=== PATIENT | female | born 1935 | race Caucasian/White ===

== ENCOUNTER 2016-04-18 18:00 | Inpatient (IN) ==
[2016-04-18] MEDS ORDERED: *HR* Dextrose 50 % in Water (Syg) 50 ML SYRINGE IVP PRN (21:54)
[2016-04-18] MEDS ORDERED: D5% in Water 1,000 ML IV PRN (21:54)
[2016-04-18] MEDS ORDERED: Dextrose Gel 15 GM PO PRN ×2 (21:54)
[2016-04-18] MEDS: Insulin LISPRO 300 UNITS/3 ML VIAL SQ SCH (22:08)
[2016-04-19 05:36] LABS: Basophils # 0.1 K/mcL (0.0-0.2); Basophils % 0.7 %; Eosinophils # 0.4 K/mcL (0.0-0.6); Eosinophils % 4.1 %; Hematocrit 32.7 % (35.3-44.9); Hemoglobin 10.5 g/dL (11.5-15.4); INR 3.3; Immature Granulocytes % 0.7 % (0-4); Lymphocytes # 1.9 K/mcL (0.6-4.6); Mean Corpuscular HGB Conc 32.1 g/dL (31.6-35.5); Mean Corpuscular Hemoglobin 28.8 pg (28.0-33.3); Mean Corpuscular Volume 89.6 fL (83.0-100.0); Mean Platelet Volume 10.9 fL (9.4-12.4); Monocytes # 0.8 K/mcL (0.0-1.3); Neutrophils # 7.2 K/mcL (1.6-8.9); Platelet Count 299 K/mcL (140-400); Red Blood Count 3.65 M/mcL (3.82-4.97); Red Cell Distribution Width 15.2 % (11.5-14.5); Segmented Neutrophils % 68.5 %
[2016-04-19 05:39] LABS: Activated Partial Thrombo Time 33.9 Seconds (26.0-36.0)
[2016-04-19 05:43] LABS: Calcium 9.1 mg/dL (8.6-10.8); Potassium 4.3 mEq/L (3.5-4.5)
[2016-04-19] MEDS: *HR* Metformin 500 MG TABLET PO SCH (08:49)
[2016-04-19] MEDS: *HR* Digoxin 0.125 MG TABLET PO SCH (08:50)
[2016-04-19] MEDS: *HR* Glimepiride 4 MG TABLET PO SCH (08:50)
[2016-04-19] MEDS: Insulin LISPRO 300 UNITS/3 ML VIAL SQ SCH ×4 (08:50→22:00)
--- NOTE | 2016-04-19 12:36 | Internal Med History&Physical ---
Date of Encounter: 04/23/16 Time of Encounter: 12:33 Assessment and Plan (1) Heart attack Current visit: Yes Status: Acute Patient appears to be stable at this point Qualifiers: Myocardial infarction ST status: non-ST elevation myocardial infarction Qualified Code(s): I21.4 - Non-ST elevation (NSTEMI) myocardial infarction (2) CVA (cerebral vascular accident) Current visit: Yes Status: Acute Working with PT OT TR. 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 P Admitted From: Hospital to Hospital Transfer Plans for Post Hospital Care: Home History of present illness: Ms. Moser is a 81 year old female Past Med Surg Social Fam HX - Past Medical History Medical history: arthritis, atrial fibrillation, CHF, CVA, DVT, diabetes, hyperlipidemia, hypertension, myocardial infarction Psychiatric history: no psych history - Past Surgical History Surgical History: cataract, other - Social History Smoking Status: Never smoker Smokeless Tobacco Status: No Alcohol use: none Drug use: none Internal Medicine - H&P: Meds Atorvastatin [Lipitor] 80 mg PO HS 04/18/16 [History] Digoxin [Lanoxin] 0.125 mg PO DAILY 04/18/16 [History] Glimepiride [Amaryl] 4 mg PO 0800 04/18/16 [History] Lisinopril [Zestril] 5 mg PO 1200 04/18/16 [History] Metformin [Glucophage] 500 mg PO 0800 04/18/16 [History] Metoprolol Tartrate 75 mg PO BID 04/18/16 [History] Potassium Chloride [K-Tab ER] 20 meq PO 04/18/16 [History] Warfarin [Coumadin] 5 mg PO 1800 04/18/16 [History] Allergies No Known Allergies Allergy (Verified 04/18/16 18:32) All Systems PM: A 10-system review of systems was performed and is negative for pertinent findings except as documented above in the HPI. - Constitutional Vitals: Temp Pulse Resp BP Pulse Ox 97.4 F L 59 16 144/72 98 04/19/16 12:17 04/19/16 12:17 04/19/16 12:17 04/19/16 12:17 04/19/16 12:17 - Head Head exam: Present: atraumatic, normal inspection, normocephalic - Neck Neck exam general surgery: Present: supple, trachea midline. Absent: lymphadenopathy - Respiratory Respiratory exam: Present: CTAB. Absent: accessory muscle use, rales, rhonchi, wheezes - Cardiovascular Cardiovascular exam: Present: RRR, +S1, +S2. Absent: diastolic murmur, gallop, rubs, systolic murmur - GI/Abdominal GI/Abdominal exam: Present: normal bowel sounds, soft, no peritoneal signs. Absent: distended, tenderness Internal Med - H&P Results - Labs CBC & Chem 7: 04/19/16 05:20 04/19/16 05:20 Labs: Short CBC 04/19/16 Range/Units 05:20 WBC 10.5 (4.3-11.1) K/mcL Hgb 10.5 L (11.5-15.4) g/dL Hct 32.7 L (35.3-44.9) % Plt Count 299 (140-400) K/mcL Neutrophils # 7.2 (1.6-8.9) K/mcL BMP 04/19/16 05:20 Sodium 141 Potassium 4.3 Chloride 111 H Carbon Dioxide 21 BUN 22 H Creatinine 1.10 Glucose 247 H Calcium 9.1 Lab appears stable
[2016-04-19] MEDS ORDERED: *HR* Warfarin 5 MG TABLET PO SCH (18:00)
[2016-04-20 06:18] LABS: INR 2.2; Prothrombin Time 23.8 Seconds (9.4-12.1)
[2016-04-20] MEDS: *HR* Glimepiride 4 MG TABLET PO SCH (08:27)
[2016-04-20] MEDS: *HR* Metformin 500 MG TABLET PO SCH (08:27)
[2016-04-20] MEDS: *HR* Digoxin 0.125 MG TABLET PO SCH (08:29)
[2016-04-20] MEDS: Insulin LISPRO 300 UNITS/3 ML VIAL SQ SCH ×4 (08:29→21:01)
--- NOTE | 2016-04-20 11:36 | Internal Med Progress Note ---
Date of Encounter: 04/20/16 Time of Encounter: 11:34 - Assessment and plan (1) Diabetes Current Visit: Yes Status: Chronic Assessment and plan: Accu-Chek is 167. On metformin 500 daily. Continue to monitor Accu-Chek. 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 PT and OT will continue on improvement activity of daily living. Safety. Balance. Qualifiers: CVA mechanism: occlusion Precerebral and cerebral artery: unspecified precerebral artery Qualified Code(s): I63.20 - Cerebral infarction due to unspecified occlusion or stenosis of unspecified precerebral arteries - Time Spent With Patient less than 15 minutes - Subjective Interval history: Still complains of blurry vision. No shortness of breath. No headache. No chest pain. No nausea vomiting abdominal pain. - Constitutional Vitals: Temp Pulse Resp BP Pulse Ox 98.8 F 61 18 136/77 95 04/20/16 07:48 04/20/16 07:48 04/20/16 07:48 04/20/16 07:48 04/20/16 07:48 General appearance: Present: A&O X 3, pleasant, no acute distress - Respiratory Respiratory exam: Present: CTAB. Absent: accessory muscle use, rales, rhonchi, wheezes - Cardiovascular Cardiovascular exam: Present: RRR, +S1, +S2. Absent: diastolic murmur, gallop, rubs, systolic murmur - GI/Abdominal GI/Abdominal exam: Present: normal bowel sounds, soft, no peritoneal signs. Absent: distended, tenderness - Extremities Exam Extremities exam: Present: warm, radial pulses palpable and symetrical. Absent : calf tenderness, cyanotic, pedal edema Internal Medicine: Result - Labs CBC & Chem 7: 04/19/16 05:20 04/19/16 05:20 - ABG Interpretation ABG results: PT/INR, D-dimer PT 23.8 Seconds (9.4-12.1) H 04/20/16 05:50 Consult Discharge Plan - Plan Referrals: Luly Cummings MD [Primary Care Provider] -
[2016-04-20] MEDS: *HR* Warfarin 5 MG TABLET PO SCH (17:31)
--- NOTE | 2016-04-21 00:08 | Internal Med Progress Note ---
Date of Encounter: 04/21/16 Time of Encounter: 07:54 - Assessment and plan (1) CVA (cerebral vascular accident) Current Visit: Yes Status: Acute Assessment and plan: Residual effect is still the visual blurred vision. PT and OT will continue on improvement activity of daily living. Safety. Balance. Qualifiers: CVA mechanism: occlusion Precerebral and cerebral artery: unspecified precerebral artery Qualified Code(s): I63.20 - Cerebral infarction due to unspecified occlusion or stenosis of unspecified precerebral arteries (2) Diabetes Current Visit: Yes Status: Chronic Assessment and plan: Accu-Chek is 167. On metformin 500 daily. Continue to monitor Accu-Chek. 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 No shortness of breath. No headache. No chest pain. No nausea vomiting abdominal pain. - Constitutional Vitals: Temp Pulse Resp BP Pulse Ox 98.0 F 82 14 154/75 95 04/20/16 19:00 04/20/16 19:00 04/20/16 19:00 04/20/16 19:00 04/20/16 19:00 General appearance: Present: A&O X 3, pleasant, no acute distress - Eye Additional comments: Blurred vision noted - Respiratory Respiratory exam: Present: CTAB. Absent: accessory muscle use, rales, rhonchi, wheezes - Cardiovascular Cardiovascular exam: Present: RRR, +S1, +S2. Absent: diastolic murmur, gallop, rubs, systolic murmur - GI/Abdominal GI/Abdominal exam: Present: normal bowel sounds, soft, no peritoneal signs. Absent: distended, tenderness - Extremities Exam Extremities exam: Present: warm, radial pulses palpable and symetrical. Absent : calf tenderness, cyanotic, pedal edema - Neurological Exam Neurological exam: Present: alert, oriented X3. Absent: pronater drift, facial droop, speech deficit Internal Medicine: Result - Labs CBC & Chem 7: 04/19/16 05:20 04/19/16 05:20 - ABG Interpretation ABG results: PT/INR, D-dimer PT 23.8 Seconds (9.4-12.1) H 04/20/16 05:50 Consult Discharge Plan - Plan Referrals: Luly Cummings MD [Primary Care Provider] -
[2016-04-21 05:32] LABS: INR 1.8; Prothrombin Time 19.7 Seconds (9.4-12.1)
[2016-04-21] MEDS: *HR* Glimepiride 4 MG TABLET PO SCH (08:37)
[2016-04-21] MEDS: *HR* Metformin 500 MG TABLET PO SCH (08:37)
[2016-04-21] MEDS: *HR* Digoxin 0.125 MG TABLET PO SCH (08:37)
[2016-04-21] MEDS: Insulin LISPRO 300 UNITS/3 ML VIAL SQ SCH ×4 (08:38→21:05)
[2016-04-21] MEDS: Acetaminophen 325 MG TABLET PO PRN ×2 (08:58→18:15)
[2016-04-21] MEDS: *HR* Warfarin 5 MG TABLET PO SCH (17:44)
[2016-04-22 05:46] LABS: Prothrombin Time 22.2 Seconds (9.4-12.1)
[2016-04-22] MEDS: *HR* Glimepiride 4 MG TABLET PO SCH (09:14)
[2016-04-22] MEDS: *HR* Metformin 500 MG TABLET PO SCH (09:14)
[2016-04-22] MEDS: *HR* Digoxin 0.125 MG TABLET PO SCH (09:14)
[2016-04-22] MEDS: Acetaminophen 325 MG TABLET PO PRN ×2 (09:20→18:17)
[2016-04-22] MEDS: Insulin LISPRO 300 UNITS/3 ML VIAL SQ SCH ×4 (09:43→20:46)
--- NOTE | 2016-04-22 13:07 | Internal Med Progress Note ---
Date of Encounter: 04/22/16 Time of Encounter: 13:05 - Assessment and plan (1) Heart attack Current Visit: Yes Status: Acute Assessment and plan: Mobile with a CVA. Pierced to be stable to Qualifiers: Myocardial infarction ST status: non-ST elevation myocardial infarction Qualified Code(s): I21.4 - Non-ST elevation (NSTEMI) myocardial infarction (2) CVA (cerebral vascular accident) Current Visit: Yes Status: Acute Assessment and plan: Patient's further PT OT and TR doing well. Qualifiers: CVA mechanism: occlusion Precerebral and cerebral artery: unspecified precerebral artery Qualified Code(s): I63.20 - Cerebral infarction due to unspecified occlusion or stenosis of unspecified precerebral arteries (3) HTN (hypertension) Current Visit: Yes Status: Acute Qualifiers: Qualified Code(s): I10 - Essential (primary) hypertension - Time Spent With Patient less than 15 minutes - Subjective Interval history: Patient has no complaints and is progressing in her program - Constitutional Vitals: Temp Pulse Resp BP Pulse Ox 97.2 F L 62 18 158/78 92 L 04/22/16 07:00 04/22/16 07:00 04/22/16 07:00 04/22/16 07:00 04/22/16 07:00 General appearance: Present: A&O X 3, pleasant, no acute distress - Head Head exam: Present: atraumatic, normal inspection, normocephalic - Neck Neck exam general surgery: Present: supple, trachea midline. Absent: lymphadenopathy - Respiratory Respiratory exam: Present: CTAB. Absent: accessory muscle use, rales, rhonchi, wheezes - Cardiovascular Cardiovascular exam: Present: RRR, +S1, +S2. Absent: diastolic murmur, gallop, rubs, systolic murmur - GI/Abdominal GI/Abdominal exam: Present: normal bowel sounds, soft, no peritoneal signs. Absent: distended, tenderness Internal Medicine: Result - Labs CBC & Chem 7: 04/19/16 05:20 04/19/16 05:20 Labs: Labs really okay - ABG Interpretation ABG results: PT/INR, D-dimer PT 22.2 Seconds (9.4-12.1) H 04/22/16 05:15 - VTE Documentation of Mechanical Device: Graduated compression elastic hosiery Consult Discharge Plan - Plan Referrals: Luly Cummings MD [Primary Care Provider] -
--- NOTE | 2016-04-22 14:19 | Psychological Evaluation ---
Date of Encounter: 04/22/16 Time of Encounter: 10:00 History of Present Illness History of present illness: Ms. Moser is an 81 year old female admitted to [facility] following a recent heart attack which led to a CVA. She was seen on this date to assess her current cognitive and emotional functioning. Past Medical History Medical history: Significant for HTN, arthritis, atrial fibrillation, CHF, DVT, diabetes, hyperlipidemia and myocardial infarction. - Psychiatric History Additional Psychiatric History: There is no history of psychiatric hospitalization or mental health counseling. She also reported no family history of psychiatric or mental health issues. Home Medications and Allergies Atorvastatin [Lipitor] 80 mg PO HS 04/18/16 [History] Digoxin [Lanoxin] 0.125 mg PO DAILY 04/18/16 [History] Glimepiride [Amaryl] 4 mg PO 0800 04/18/16 [History] Lisinopril [Zestril] 5 mg PO 1200 04/18/16 [History] Metformin [Glucophage] 500 mg PO 0800 04/18/16 [History] Metoprolol Tartrate 75 mg PO BID 04/18/16 [History] Potassium Chloride [K-Tab ER] 20 meq PO 04/18/16 [History] Warfarin [Coumadin] 5 mg PO 1800 04/18/16 [History] Allergies No Known Allergies Allergy (Verified 04/18/16 18:32) Social History - Social History Social History: Ms. Moser and her have been for 60 years. They have 3 children (one son age 59 and two daughters ages 57 and 55). 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 She reported that she and her enjoyed traveling initially after their jail and going to the [employer]. Their lives have slowed down in recent years. 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 She enjoyed needlework and crocheting. Ms. Moser reported that her social support system consists of her children. - Tobacco Use Smoking Status: Never smoker - Alcohol Use Alcohol Use: none - Drug Use Drug Use: none Cognitive/Emotional Assessment - Cognitive Ability Additional Findings: Ms. Moser was alert, attentive and fully oriented. Speech was clear, fluent and effective. Thought processes were coherent, goal-directed and logical. There were no signs of delusional ideation or perceptual disturbances. On a measure of attention/concentration, sentence repetition, confrontational naming and working memory, she performed within normal limits. She was able to recall all 4 words from a list after a brief delay without any cueing or assistance. Auditory comprehension also appeared in the normal range and she was able to successfully perform 2-step complex verbal commands. Performance on a measure of abstract reasoning and a measure of social judgment were also within normal limits. - Emotional Status Additional Findings: Ms. Moser was pleasant, cooperative and friendly. She denied feeling depressed or having experienced any changes in emotional control. Mood was euthymic; affect was appropriate and congruent with mood. She acknowledged that she initially felt anxious after she suffered the heart attack followed by the CVA but has felt encouraged by her recovery in her functioning. Her rehab goals are to increase her strength and endurance. She is also hopeful that the vision in her left eye improves. Assessment & Plan - Diagnosis (1) CVA (cerebral vascular accident) Qualifiers: CVA mechanism: occlusion Precerebral and cerebral artery: unspecified precerebral artery Qualified Code(s): I63.20 - Cerebral infarction due to unspecified occlusion or stenosis of unspecified precerebral arteries - Treatment Plan Treatment Plan/Recommendations: Ms. Moser appears to be doing well from a cognitive and emotional perspective. Her delayed recall, auditory comprehension, abstract reasoning and social judgment were within the normal range. She did not exhibit signs/ symptoms of depression, anxiety or irritability. She has realistic goals and expectations for her stroke recovery with a goal of returning to community living. There are no recommendations for additional psychological interventions at this time. Procedures - Session Time Session Start Time: 10:00 Session Stop Time: 10:30
--- NOTE | 2016-04-22 15:30 | Physcial Medicine-Consult Note ---
Date of Encounter: 04/23/16 Time of Encounter: 15:25 Physical Medicine - AP (1) CVA (cerebral vascular accident) Status: Acute Assessment and plan: 1. CVA: Patient is progressing well with therapy. She is ambulating 150 feet with a walker. Her primary barrier is fatigue. Will continue with intensive PT /OT/ST/TR. Will work towards patient ambulating without the need for her walker. 2. Her primary barrier is her poor endurance, most likely secondary to her cardiac issues. We will continue with therapy with frequent rest breaks. 3. Estimated date of discharge: 05/01/16. Code(s): I63.9 - Cerebral infarction, unspecified SNOMED Code(s): 902304610 Physical Medicine - HPI - Data of Consult Consult date: 04/22/16 Requesting Physician: Faraz Villalpando DO Primary Care Provider: Luly Cummings, - Consult Narrative Reason for consult: CVA History of present illness: Ms. Moser is a 81 year old female who was admitted for inpatient rehabilitation. Patient initially presented to an outside hospital with complaints of chest pain with an elevated troponin and ischemic changes on her EKG. Patient was also found to be be in atrial flutter. During her acute stay , she complained of blurred vision in the right eye. A head CT was obtained which revealed a subacute CVA in the right BIOSTATISTICIAN territory. Patient was stabilized and transferred for inpatient therapy. CC: Faraz Villalpando DO Past Med Surg Social Fam - Past Medical History Medical history: arthritis, atrial fibrillation, CHF, CVA, DVT, diabetes, hyperlipidemia, hypertension, myocardial infarction Psychiatric history: no psych history - Past Surgical History Surgical History: cataract, other - Social History Smoking Status: Never smoker Smokeless Tobacco Status: No Alcohol use: none Drug use: none Medications and Allergies Atorvastatin [Lipitor] 80 mg PO HS 04/18/16 [History] Digoxin [Lanoxin] 0.125 mg PO DAILY 04/18/16 [History] Glimepiride [Amaryl] 4 mg PO 0800 04/18/16 [History] Lisinopril [Zestril] 5 mg PO 1200 04/18/16 [History] Metformin [Glucophage] 500 mg PO 0800 04/18/16 [History] Metoprolol Tartrate 75 mg PO BID 04/18/16 [History] Potassium Chloride [K-Tab ER] 20 meq PO 04/18/16 [History] Warfarin [Coumadin] 5 mg PO 1800 04/18/16 [History] Allergies No Known Allergies Allergy (Verified 04/18/16 18:32) - Constitutional Constitutional: Present: fatigue - EENT Eyes: Present: blurry vision - Cardiovascular Cardiovascular: Present: dyspnea on exertion, edema. Absent: chest pain, chest pain at rest, diaphoresis, dyspnea - Respiratory Respiratory: Present: dyspnea on exertion - Gastrointestinal Gastrointestinal: Absent: abdominal pain, loose stools - Genitourinary Genitourinary: Absent: urinary frequency, urinary urgency - Musculoskeletal Musculoskeletal: Present: stiffness. Absent: radiating pain into limb - Neurological Neurological: Absent: focal weakness - Psychiatric Psychiatric: Absent: anxiety, hallucinations, memory loss Physical Medicine - Exam - Constitutional Vitals: Temp Pulse Resp BP Pulse Ox 97.2 F L 62 18 158/78 92 L 04/22/16 07:00 04/22/16 07:00 04/22/16 07:00 04/22/16 07:00 04/22/16 07:00 Exam: Patient is alert and oriented to person, place and date. Answers questions appropriately. Pleasant and appropriate. 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 No facial droop. Tongue is midline. - Respiratory Respiratory exam: Present: CTAB - Cardiovascular Cardiovascular exam: Present: RRR - GI/Abdominal GI/Abdominal exam: Present: normal bowel sounds, soft. Absent: tenderness - Extremities Exam Extremities exam: Present: normal inspection. Absent: calf tenderness - Neurological Exam Neurological exam: Present: alert, CN II-XII intact, oriented X3 Additional comments: Upper and lower limb reflexes are absent. Motor strength is 5/5 in the bilateral upper and lower limbs. No clonus on exam. Physical Medicine - Results - Labs CBC & Chem 7: 04/19/16 05:20 04/19/16 05:20 Consult Discharge Plan - Plan Referrals: Luly Cummings MD [Primary Care Provider] -
[2016-04-22] MEDS: *HR* Warfarin 5 MG TABLET PO SCH (18:17)
[2016-04-23 05:25] LABS: INR 2.3
[2016-04-23] MEDS: *HR* Glimepiride 4 MG TABLET PO SCH (08:06)
[2016-04-23] MEDS: *HR* Metformin 500 MG TABLET PO SCH (08:06)
[2016-04-23] MEDS: Acetaminophen 325 MG TABLET PO PRN (08:06)
[2016-04-23] MEDS: *HR* Digoxin 0.125 MG TABLET PO SCH (08:07)
[2016-04-23] MEDS: Insulin LISPRO 300 UNITS/3 ML VIAL SQ SCH ×3 (08:14→20:26)
--- NOTE | 2016-04-23 13:11 | Discharge Summary ---
Date of Encounter: 04/23/16 Time of Encounter: 13:09 - Discharge Diagnosis (1) Heart attack Priority: Secondary Status: Acute Qualifiers: Myocardial infarction ST status: non-ST elevation myocardial infarction Qualified Code(s): I21.4 - Non-ST elevation (NSTEMI) myocardial infarction (2) CVA (cerebral vascular accident) Priority: Primary Status: Acute Qualifiers: CVA mechanism: occlusion Precerebral and cerebral artery: unspecified precerebral artery Qualified Code(s): I63.20 - Cerebral infarction due to unspecified occlusion or stenosis of unspecified precerebral arteries (3) HTN (hypertension) Priority: Secondary Status: Acute Qualifiers: Qualified Code(s): I10 - Essential (primary) hypertension - Discharge Medications Home Medications: Atorvastatin [Lipitor] 80 mg PO HS 04/18/16 [History] Digoxin [Lanoxin] 0.125 mg PO DAILY 04/18/16 [History] Glimepiride [Amaryl] 4 mg PO 0800 04/18/16 [History] Lisinopril [Zestril] 5 mg PO 1200 04/18/16 [History] Metformin [Glucophage] 500 mg PO 0800 04/18/16 [History] Metoprolol Tartrate 75 mg PO BID 04/18/16 [History] Potassium Chloride [K-Tab ER] 20 meq PO 04/18/16 [History] Warfarin [Coumadin] 5 mg PO 1800 04/18/16 [History] Allergies/Adverse Reactions: Allergies No Known Allergies Allergy (Verified 04/18/16 18:32) Date of admission: 04/18/16 18:00 Primary care physician: Luly Cummings, Consults: 04/18/16 18:46 Consult to Occupational Therapy [CONS] Routine Comment: Evaluate, develop and implement POC Consult to Physical Therapy [CONS] Routine Comment: Evaluate, develop and implement POC Consult to Recreational Therapy [CONS] Routine Comment: Evaluate, develop and implement POC Consult to Health And Safety Manager [CONS] Routine Reason for SW Consult: discharge planning Consult to Speech Therapy [CONS] Routine Comment: Evaluate, develop and implement POC Reason for Consult: speech impairment Call Completed: Yes 04/21/16 11:59 Consult to Psychology [CONS] Routine Consulting Provider: Palak Hernández Reason for Consult: rehab, cva Call Completed: No Discharging clinician: Faraz Villalpando Anticipated date of discharge: 04/23/16 - Patient Status Disposition: Home, Self-Care Condition: Good Functional capacity at discharge: uses cane/walker Overall status at discharge: patient is progressing back to baseline - Discharge Instructions Follow Up With: [facility], [facility] [Other] - 05/06/16 10:00 am Luly Cummings MD [Primary Care Provider] - 05/07/16 10:00 am - Diet and Activity Activity: ambulate only with your walker Diet: advance to your usual diet Interval History: Patient was sent to be [facility] rehabilitation status post CVA. Hospital course: Ms. Moser is a 81 year old female - Time Spent with Patient Total time spent providing and/or coordinating discharge services: Less than 30 minutes - Constitutional Vitals: Temp Pulse Resp BP Pulse Ox 98.5 F 52 16 120/76 96 04/23/16 10:20 04/23/16 10:20 04/23/16 10:20 04/23/16 10:20 04/23/16 10:20 General appearance: Present: A&O X 3, pleasant, no acute distress - Head Head exam: Present: atraumatic, normal inspection, normocephalic - Neck Neck exam general surgery: Present: supple, trachea midline. Absent: lymphadenopathy - Respiratory Respiratory exam: Present: CTAB. Absent: accessory muscle use, rales, rhonchi, wheezes - Cardiovascular Cardiovascular exam: Present: RRR, +S1, +S2. Absent: diastolic murmur, gallop, rubs, systolic murmur - VTE Documentation of Mechanical Device: Graduated compression elastic hosiery
--- NOTE | 2016-04-23 13:14 | Internal Med Progress Note ---
Date of Encounter: 04/23/16 Time of Encounter: 13:12 - Assessment and plan (1) Heart attack Current Visit: Yes Status: Acute Assessment and plan: No evidence of cardiovascular problems at this time Qualifiers: Myocardial infarction ST status: non-ST elevation myocardial infarction Qualified Code(s): I21.4 - Non-ST elevation (NSTEMI) myocardial infarction (2) CVA (cerebral vascular accident) Current Visit: Yes Status: Acute Assessment and plan: Patient is working on her strength and endurance which her endurance is her limiting factor Qualifiers: CVA mechanism: occlusion Precerebral and cerebral artery: unspecified precerebral artery Qualified Code(s): I63.20 - Cerebral infarction due to unspecified occlusion or stenosis of unspecified precerebral arteries (3) HTN (hypertension) Current Visit: Yes Status: Acute Qualifiers: Qualified Code(s): I10 - Essential (primary) hypertension - Time Spent With Patient less than 15 minutes - Subjective Interval history: Patient has no complaints and is progressing in her program. Patient walking R 50 feet with walker and improving - Constitutional Vitals: Temp Pulse Resp BP Pulse Ox 98.5 F 52 16 120/76 96 04/23/16 10:20 04/23/16 10:20 04/23/16 10:20 04/23/16 10:20 04/23/16 10:20 General appearance: Present: A&O X 3, pleasant, no acute distress - Head Head exam: Present: atraumatic, normal inspection, normocephalic - Neck Neck exam general surgery: Present: supple, trachea midline. Absent: lymphadenopathy - Respiratory Respiratory exam: Present: CTAB. Absent: accessory muscle use, rales, rhonchi, wheezes - Cardiovascular Cardiovascular exam: Present: RRR, +S1, +S2. Absent: diastolic murmur, gallop, rubs, systolic murmur Internal Medicine: Result - Labs CBC & Chem 7: 04/19/16 05:20 04/19/16 05:20 Labs: Lab appears stable - ABG Interpretation ABG results: PT/INR, D-dimer PT 26.0 Seconds (9.4-12.1) H 04/23/16 05:15 - VTE Documentation of Mechanical Device: Graduated compression elastic hosiery Consult Discharge Plan - Plan Referrals: [facility], [facility] [Other] - 05/06/16 10:00 am Luly Cummings MD [Primary Care Provider] - 05/07/16 10:00 am
[2016-04-23] MEDS: *HR* Warfarin 5 MG TABLET PO SCH (18:32)
[2016-04-23] MEDS: Furosemide 40 MG TABLET PO SCH (18:32)
[2016-04-24 07:37] LABS: INR 2.6; Prothrombin Time 28.9 Seconds (9.4-12.1)
[2016-04-24] MEDS: *HR* Glimepiride 4 MG TABLET PO SCH (08:23)
[2016-04-24] MEDS: *HR* Metformin 500 MG TABLET PO SCH (08:24)
[2016-04-24] MEDS: *HR* Digoxin 0.125 MG TABLET PO SCH (08:24)
[2016-04-24] MEDS: Furosemide 40 MG TABLET PO SCH (08:24)
[2016-04-24] MEDS: Acetaminophen 325 MG TABLET PO PRN ×2 (08:26→20:27)
[2016-04-24] MEDS: Insulin LISPRO 300 UNITS/3 ML VIAL SQ SCH ×3 (08:26→20:26)
--- NOTE | 2016-04-24 14:01 | Internal Med Progress Note ---
Date of Encounter: 04/24/16 Time of Encounter: 13:59 - Assessment and plan (1) Heart attack Current Visit: Yes Status: Acute Assessment and plan: No evidence right now cardiovascular problem Qualifiers: Myocardial infarction ST status: non-ST elevation myocardial infarction Qualified Code(s): I21.4 - Non-ST elevation (NSTEMI) myocardial infarction (2) CVA (cerebral vascular accident) Current Visit: Yes Status: Acute Assessment and plan: Patient is undergoing PT and OT for her CVA along with TR and doing well Qualifiers: CVA mechanism: occlusion Precerebral and cerebral artery: unspecified precerebral artery Qualified Code(s): I63.20 - Cerebral infarction due to unspecified occlusion or stenosis of unspecified precerebral arteries (3) HTN (hypertension) Current Visit: Yes Status: Acute Assessment and plan: Blood pressure is well controlled Qualifiers: Qualified Code(s): I10 - Essential (primary) hypertension - Time Spent With Patient less than 15 minutes - Subjective Interval history: Ms. Rodrigez looks good color is good she is working with the therapist and progressing very nicely - Constitutional Vitals: Temp Pulse Resp BP Pulse Ox 97.7 F 81 16 134/65 94 L 04/24/16 06:50 04/24/16 06:50 04/24/16 06:50 04/24/16 06:50 04/24/16 06:50 General appearance: Present: A&O X 3, pleasant, no acute distress - Head Head exam: Present: atraumatic, normocephalic - Neck Neck exam general surgery: Present: supple, trachea midline. Absent: lymphadenopathy - Respiratory Respiratory exam: Present: CTAB. Absent: accessory muscle use, rales, rhonchi, wheezes - Cardiovascular Cardiovascular exam: Present: RRR, +S1, +S2. Absent: diastolic murmur, gallop, rubs, systolic murmur Internal Medicine: Result - Labs CBC & Chem 7: 04/19/16 05:20 04/19/16 05:20 Labs: Lab looks good - ABG Interpretation ABG results: PT/INR, D-dimer PT 28.9 Seconds (9.4-12.1) H 04/24/16 06:40 - VTE Documentation of Mechanical Device: Graduated compression elastic hosiery Consult Discharge Plan - Plan Referrals: [facility], Cou[facility] [Other] - 05/06/16 10:00 am Luly Cummings MD [Primary Care Provider] - 05/07/16 10:00 am
[2016-04-24] MEDS: *HR* Warfarin 5 MG TABLET PO SCH (17:49)
[2016-04-25] MEDS ORDERED: Acetaminophen 325 MG TABLET PO PRN (00:47)
[2016-04-25 05:45] LABS: Prothrombin Time 33.2 Seconds (9.4-12.1)
[2016-04-25] MEDS: *HR* Digoxin 0.125 MG TABLET PO SCH (08:20)
[2016-04-25] MEDS: *HR* Glimepiride 4 MG TABLET PO SCH (08:20)
[2016-04-25] MEDS: Furosemide 40 MG TABLET PO SCH (08:20)
[2016-04-25] MEDS: *HR* Metformin 500 MG TABLET PO SCH (08:20)
[2016-04-25] MEDS: Insulin LISPRO 300 UNITS/3 ML VIAL SQ SCH ×5 (08:21→20:11)
[2016-04-25] MEDS: *HR* Warfarin 5 MG TABLET PO SCH (17:22)
[2016-04-26 05:38] LABS: INR 2.9; Prothrombin Time 32.1 Seconds (9.4-12.1)
[2016-04-26] MEDS: Insulin LISPRO 300 UNITS/3 ML VIAL SQ SCH ×4 (07:57→20:14)
[2016-04-26] MEDS: Furosemide 40 MG TABLET PO SCH (08:01)
[2016-04-26] MEDS: *HR* Metformin 500 MG TABLET PO SCH (08:02)
[2016-04-26] MEDS: *HR* Digoxin 0.125 MG TABLET PO SCH (08:02)
[2016-04-26] MEDS: *HR* Glimepiride 4 MG TABLET PO SCH (08:03)
--- NOTE | 2016-04-26 11:00 | Internal Med Progress Note ---
Date of Encounter: 04/26/16 Time of Encounter: 11:00 - Assessment and plan (1) CVA (cerebral vascular accident) Current Visit: Yes Status: Acute Assessment and plan: Patient is undergoing PT and OT to improve her gait, balance in transfer with his eye patched for the blurry vision. Qualifiers: CVA mechanism: occlusion Precerebral and cerebral artery: unspecified precerebral artery Qualified Code(s): I63.20 - Cerebral infarction due to unspecified occlusion or stenosis of unspecified precerebral arteries (2) Diabetes Current Visit: Yes Status: Chronic Assessment and plan: Accu-Chek [id number] . On metformin 500 daily. Continue to monitor Accu-Chek. M Qualifiers: Diabetes mellitus type: type 2 Diabetes mellitus complication status: with hyperglycemia Diabetes mellitus fdc insulin use: with fdc use Qualified Code(s): E11.65 - Type 2 diabetes mellitus with hyperglycemia; Z79.4 - long term (current) use of insulin - Time Spent With Patient less than 15 minutes - Subjective Interval history: Feels as though she is getting better daily. No new voice complaining except Still complains of blurry vision. No shortness of breath. No headache. No chest pain. No nausea vomiting abdominal pain. - Constitutional Vitals: Temp Pulse Resp BP Pulse Ox 98.2 F 67 18 129/75 94 L 04/26/16 07:01 04/26/16 07:01 04/26/16 07:01 04/26/16 07:01 04/26/16 07:01 General appearance: Present: A&O X 3, pleasant, no acute distress - Respiratory Respiratory exam: Present: CTAB. Absent: accessory muscle use, rales, rhonchi, wheezes - Cardiovascular Cardiovascular exam: Present: RRR, +S1, +S2. Absent: diastolic murmur, gallop, rubs, systolic murmur - Extremities Exam Extremities exam: Present: warm, radial pulses palpable and symetrical. Absent : calf tenderness, cyanotic, pedal edema Internal Medicine: Result - Labs CBC & Chem 7: 04/19/16 05:20 04/19/16 05:20 - ABG Interpretation ABG results: PT/INR, D-dimer PT 32.1 Seconds (9.4-12.1) H 04/26/16 05:20 - VTE Documentation of Mechanical Device: Graduated compression elastic hosiery Consult Discharge Plan - Plan Referrals: [facility], Coumadin Clinic [Other] - 05/06/16 10:00 am Luly Cummings MD [Primary Care Provider] - 05/07/16 10:00 am
[2016-04-27 05:28] LABS: INR 3.2; Prothrombin Time 35.8 Seconds (9.4-12.1)
[2016-04-27] MEDS: Insulin LISPRO 300 UNITS/3 ML VIAL SQ SCH ×4 (07:49→20:16)
[2016-04-27] MEDS: *HR* Metformin 500 MG TABLET PO SCH (08:06)
[2016-04-27] MEDS: Furosemide 40 MG TABLET PO SCH (08:08)
[2016-04-27] MEDS: *HR* Digoxin 0.125 MG TABLET PO SCH (08:08)
[2016-04-27] MEDS: *HR* Glimepiride 4 MG TABLET PO SCH (08:08)
--- NOTE | 2016-04-27 13:32 | Internal Med Progress Note ---
Date of Encounter: 04/27/16 Time of Encounter: 13:31 - Assessment and plan (1) Heart attack Current Visit: Yes Status: Acute Assessment and plan: Cardiovascular stable Qualifiers: Myocardial infarction ST status: non-ST elevation myocardial infarction Qualified Code(s): I21.4 - Non-ST elevation (NSTEMI) myocardial infarction (2) CVA (cerebral vascular accident) Current Visit: Yes Status: Acute Assessment and plan: Symptoms improved possibly still some vision changes but even this is improved. Qualifiers: CVA mechanism: occlusion Precerebral and cerebral artery: unspecified precerebral artery Qualified Code(s): I63.20 - Cerebral infarction due to unspecified occlusion or stenosis of unspecified precerebral arteries (3) HTN (hypertension) Current Visit: Yes Status: Acute Assessment and plan: Her pressures well controlled Qualifiers: Qualified Code(s): I10 - Essential (primary) hypertension - Time Spent With Patient less than 15 minutes - Subjective Interval history: Mrs. Rodrigez is improved her balance is better she is using the walker. She will be discharged home tomorrow with her family. She is currently thinking about whether to do home health or outpatient. She states she does have a ride and will consider doing outpatient at [facility] or - Constitutional Vitals: Temp Pulse Resp BP Pulse Ox 98.6 F 65 18 126/68 94 L 04/27/16 08:48 04/27/16 08:48 04/27/16 08:48 04/27/16 08:48 04/27/16 08:48 General appearance: Present: A&O X 3, pleasant, no acute distress - Head Head exam: Present: atraumatic, normal inspection, normocephalic - Neck Neck exam general surgery: Present: supple, trachea midline. Absent: lymphadenopathy - Respiratory Respiratory exam: Present: CTAB. Absent: accessory muscle use, rales, rhonchi, wheezes - Cardiovascular Cardiovascular exam: Present: RRR, +S1, +S2. Absent: diastolic murmur, gallop, rubs, systolic murmur Internal Medicine: Result - Labs CBC & Chem 7: 04/19/16 05:20 04/19/16 05:20 Labs: Lab looks good - ABG Interpretation ABG results: PT/INR, D-dimer PT 35.8 Seconds (9.4-12.1) H 04/27/16 05:00 - VTE Documentation of Mechanical Device: Graduated compression elastic hosiery Consult Discharge Plan - Plan Referrals: [facility], Coumadin Clinic [Other] - 05/06/16 10:00 am Luly Cummings MD [Primary Care Provider] - 05/07/16 10:00 am
[2016-04-27] MEDS ORDERED: *HR* Warfarin 3 MG TABLET PO SCH (18:00)
[2016-04-28 05:40] LABS: INR 2.7; Prothrombin Time 30.5 Seconds (9.4-12.1)
[2016-04-28 07:07] VITALS: BP 120/55
[2016-04-28] MEDS: Insulin LISPRO 300 UNITS/3 ML VIAL SQ SCH (08:43)
[2016-04-28] MEDS: *HR* Glimepiride 4 MG TABLET PO SCH (08:45)
[2016-04-28] MEDS: *HR* Metformin 500 MG TABLET PO SCH (08:45)
[2016-04-28] MEDS: Furosemide 40 MG TABLET PO SCH (08:45)
[2016-04-28] MEDS: *HR* Digoxin 0.125 MG TABLET PO SCH (08:46)
--- NOTE | 2016-04-28 11:36 | Discharge Summary ---
Date of Encounter: 04/28/16 Time of Encounter: 11:34 - Discharge Diagnosis (1) Heart attack Priority: Secondary Status: Acute Comments: Patient did very well with no recurrence of myocardial disease Qualifiers: Myocardial infarction ST status: non-ST elevation myocardial infarction Qualified Code(s): I21.4 - Non-ST elevation (NSTEMI) myocardial infarction (2) CVA (cerebral vascular accident) Priority: Primary Status: Acute Comments: Patient has done well in therapy please see PT OT and TR notes Qualifiers: CVA mechanism: occlusion Precerebral and cerebral artery: unspecified precerebral artery Qualified Code(s): I63.20 - Cerebral infarction due to unspecified occlusion or stenosis of unspecified precerebral arteries (3) HTN (hypertension) Priority: Secondary Status: Acute Comments: Blood pressure is well controlled Qualifiers: Qualified Code(s): I10 - Essential (primary) hypertension - Discharge Medications Home Medications: Atorvastatin [Lipitor] 80 mg PO HS 04/18/16 [History] Digoxin [Lanoxin] 0.125 mg PO DAILY 04/18/16 [History] Glimepiride [Amaryl] 4 mg PO 0800 04/18/16 [History] Lisinopril [Zestril] 5 mg PO 1200 04/18/16 [History] Metformin [Glucophage] 500 mg PO 0800 04/18/16 [History] Metoprolol Tartrate 75 mg PO BID 04/18/16 [History] Potassium Chloride [K-Tab ER] 20 meq PO 04/18/16 [History] Warfarin [Coumadin] 5 mg PO 1800 04/18/16 [History] Allergies/Adverse Reactions: Allergies No Known Allergies Allergy (Verified 04/18/16 18:32) Date of admission: 04/18/16 18:00 Primary care physician: Luly Cummings, Consults: 04/18/16 18:46 Consult to Occupational Therapy [CONS] Routine Comment: Evaluate, develop and implement POC Consult to Physical Therapy [CONS] Routine Comment: Evaluate, develop and implement POC Consult to Recreational Therapy [CONS] Routine Comment: Evaluate, develop and implement POC Consult to [employer] [CONS] Routine Reason for SW Consult: discharge planning Consult to Speech Therapy [CONS] Routine Comment: Evaluate, develop and implement POC Reason for Consult: speech impairment Call Completed: Yes 04/21/16 11:59 Consult to Psychology [CONS] Routine Consulting Provider: Palak Hernández Reason for Consult: rehab, cva Call Completed: No Discharging clinician: Faraz Villalpando Anticipated date of discharge: 04/28/16 - Patient Status Disposition: Home, Self-Care Condition: Good - Discharge Instructions Follow Up With: [facility], Coumadin [facility] [Other] - 05/06/16 10:00 am Alice Almeida [Other] (June 05, 2016 at 11:45 am) Mario Moseley [facility] [Other] (Office called and msg left to schedule 1 month follow up post hospital stay) Luly Cummings MD [Primary Care Provider] - 05/12/16 2:40 pm Hospital course: Ms. Moser is a 81 year old female - Time Spent with Patient Total time spent providing and/or coordinating discharge services: - Constitutional Vitals: Temp Pulse Resp BP Pulse Ox 97.8 F 85 16 120/55 95 04/28/16 07:00 04/28/16 07:00 04/28/16 07:00 04/28/16 07:00 04/28/16 07:00 General appearance: Present: A&O X 3, pleasant, no acute distress - VTE Documentation of Mechanical Device: Graduated compression elastic hosiery
== END 2016-04-28 12:20 | disposition home or self-care (01) | DRG 56 ==
LOC: INPGRE 18:00
PROVIDERS: ADMIT Internal Medicine; ATTEND Internal Medicine